=== PATIENT | female | born 1985 | race Caucasian/White ===

== ENCOUNTER 2016-06-28 04:09 | Emergency (ER) | payer OTHER ==
[2016-06-28 06:57] VITALS: BP 137/98
== END 2016-06-28 06:57 | disposition home or self-care (01) ==
LOC: ED 04:09
DX: O20.0 Threatened abortion (principal); O99.511 Diseases of the respiratory system complicating pregnancy, first trimester; J06.9 Acute upper respiratory infection, unspecified; Z3A.01 Less than 8 weeks gestation of pregnancy

== ENCOUNTER → 2016-08-25 | Outpatient (CLI) | payer OTHER ==
[2016-08-25 16:34] LABS: AST/SGOT 25 U/L (15-37)
[2016-08-25 16:44] LABS: BASOPHIL % 0 % (0-2); PLATELET COUNT 183 x10^3mcL (130-400); RED CELL DISTRIBUTION WIDTH 14.6 % (11.5-14.5)
== END | disposition home or self-care (01) ==
LOC: LB 15:06
DX: Z34.90 Encounter for supervision of normal pregnancy, unspecified, unspecified trimester (principal)

== ENCOUNTER → 2016-11-11 | Outpatient (CLI) | payer OTHER ==
[2016-11-11 09:13] LABS: PLATELET COUNT 204 x10^3mcL (130-400)
[2016-11-11 09:14] LABS: BASOPHIL % 0 % (0-2); RED CELL DISTRIBUTION WIDTH 15.4 % (11.5-14.5)
[2016-11-12 08:15] LABS: RAPID PLASMA REAGIN Non Reactive (Non Reactive)
== END | disposition home or self-care (01) ==
LOC: LB 08:34
DX: Z00.00 Encounter for general adult medical examination without abnormal findings (principal)

== ENCOUNTER → 2016-12-15 | Outpatient (CLI) | payer OTHER ==
[2016-12-15 16:39] LABS: BASOPHIL % 0.2 % (0-2); PLATELET COUNT 206 x10^3mcL (130-400)
[2016-12-15 16:46] LABS: ALKALINE PHOSPHATASE 152 U/L (46-116); ALT/SGPT 22 U/L (14-59); AST/SGOT 25 U/L (15-37); BILIRUBIN TOTAL 0.3 mg/dL (0.20-1.00); CALCIUM 9.3 mg/dL (8.5-10.1); CARBON DIOXIDE 24.4 mmol/L (21-32); CHLORIDE SERUM 104 mmol/L (98-107); CREATININE SERUM 0.5 mg/dL (0.6-1.0); GFR1 > 60 mL/min; GLUCOSE SERUM 68 mg/dL (74-106); POTASSIUM SERUM 4.1 mmol/L (3.5-5.1); SODIUM SERUM 137 mmol/L (136-145); TOTAL PROTEIN, SERUM 6.4 g/dL (6.4-8.2); URIC ACID 5.2 mg/dL (2.6-6.0)
[2016-12-15 16:48] LABS: ALBUMIN 2.5 g/dL (3.4-5.0)
[2016-12-15 17:01] LABS: RED CELL DISTRIBUTION WIDTH 15.2 % (11.5-14.5)
== END | disposition home or self-care (01) ==
LOC: LB 16:06
DX: O13.3 Gestational [pregnancy-induced] hypertension without significant proteinuria, third trimester (principal)

== ENCOUNTER → 2017-06-14 | Outpatient (CLI) | payer OTHER ==
[2017-06-14 11:32] LABS: BASOPHIL % 0.4 % (0-2); PLATELET COUNT 249 x10^3mcL (130-400); RED CELL DISTRIBUTION WIDTH 13.8 % (11.5-14.5)
[2017-06-14 12:05] LABS: ALBUMIN 3.4 g/dL (3.4-5.0); ALKALINE PHOSPHATASE 146 U/L (46-116); ALT/SGPT 18 U/L (14-59); AST/SGOT 17 U/L (15-37); BILIRUBIN TOTAL 0.3 mg/dL (0.20-1.00); CALCIUM 9.3 mg/dL (8.5-10.1); CARBON DIOXIDE 29.2 mmol/L (21-32); CHLORIDE SERUM 104 mmol/L (98-107); CHOLESTEROL 143 mg/dL (<200); CHOLESTEROL/HDL RATIO 2.9; CREATININE SERUM 0.8 mg/dL (0.6-1.0); GFR1 > 60 mL/min; GLUCOSE SERUM 84 mg/dL (74-106); HDL CHOLESTEROL 49 mg/dL (40-60); POTASSIUM SERUM 4.1 mmol/L (3.5-5.1); SODIUM SERUM 139 mmol/L (136-145); TOTAL PROTEIN, SERUM 7.2 g/dL (6.4-8.2); TRIGLYCERIDES 164 mg/dL (<150)
== END | disposition home or self-care (01) ==
LOC: LB 10:31
DX: Z01.419 Encounter for gynecological examination (general) (routine) without abnormal findings (principal)

== ENCOUNTER → 2017-07-01 | Outpatient (CLI) | payer OTHER | END | disposition home or self-care (01) | LOC: US 16:30 | PROC: BW4GZZZ Ultrasonography of Pelvic Region (ICD-10-PCS; principal; 2017-07-01) | DX: R10.2 Pelvic and perineal pain (principal) ==

== ENCOUNTER 2018-06-27 23:31 | Emergency (ER) | payer OTHER ==
[~2018-06-27] VITALS: Ht 165.1 cm; Wt 119.7 kg
[2018-06-27 23:36] VITALS: Ht 165.1 cm; Wt 119.7 kg
[2018-06-28 00:56] LABS: BASOPHIL % 0.3 % (0-2); PLATELET COUNT 208 x10^3mcL (130-400); RED CELL DISTRIBUTION WIDTH 13.1 % (11.5-14.5)
[2018-06-28 01:05] LABS: CALCIUM 8.7 mg/dL (8.5-10.1); CARBON DIOXIDE 20.9 mmol/L (21-32); CHLORIDE SERUM 103 mmol/L (98-107); CREATININE SERUM 0.9 mg/dL (0.6-1.0); GFR1 > 60 mL/min; GLUCOSE SERUM 149 mg/dL (74-106); POTASSIUM SERUM 3.3 mmol/L (3.5-5.1); SODIUM SERUM 136 mmol/L (136-145)
[2018-06-28 01:17] LABS: ALKALINE PHOSPHATASE 119 U/L (46-116); ALT/SGPT 27 U/L (14-59); AMYLASE 40 U/L (25-115); AST/SGOT 24 U/L (15-37); BILIRUBIN TOTAL 0.45 mg/dL (0.20-1.00); HDL CHOLESTEROL 38 mg/dL (40-60); LIPASE 188 IU/L (73-393); MAGNESIUM 1.6 mg/dL (1.8-2.4); T4(THYROXINE) 10.9 ug/dL (4.7-13.3); TOTAL PROTEIN, SERUM 6.7 g/dL (6.4-8.2)
[2018-06-28 01:18] LABS: CHOLESTEROL 112 mg/dL (<200)
[2018-06-28 01:43] LABS: microscopic required? NO
[2018-06-28 02:11] LABS: UA SPECIFIC GRAVITY <=1.005 (1.005-1.035); urine erythrocyte NEGATIVE (NEGATIVE)
[2018-06-28 02:27] LABS: AMPHETAMINE QUAL UR NONE DETECTED (See below)
[2018-06-28 03:43] VITALS: BP 130/79
== END 2018-06-28 03:43 | disposition home or self-care (01) ==
LOC: ED 23:31
PROVIDERS: Emergency Medicine
DX: J18.9 Pneumonia, unspecified organism (principal); R09.1 Pleurisy; R07.89 Other chest pain; E66.01 Morbid (severe) obesity due to excess calories; Z68.41 Body mass index [BMI] 40.0-44.9, adult; Z98.890 Other specified postprocedural states
CPT/HCPCS: 85378; 87804; J0696; J1885; J7030; Q9967

== ENCOUNTER 2018-09-01 19:40 | Emergency (ER) | payer OTHER ==
[~2018-09-01] VITALS: Ht 165.1 cm; Wt 117.9 kg
[2018-09-01 19:42] VITALS: BP 137/86; Ht 165.1 cm; Wt 117.9 kg
== END 2018-09-01 20:01 | disposition home or self-care (01) ==
LOC: ED 19:40
DX: J03.90 Acute tonsillitis, unspecified (principal)
CPT/HCPCS: J0696; J7512

== ENCOUNTER 2018-10-18 00:44 | Inpatient (IN) | payer OTHER ==
[~2018-10-18] VITALS: Ht 165.1 cm; Wt 117.9 kg
[2018-10-18 00:51] VITALS: Ht 165.1 cm; Wt 117.9 kg
--- NOTE | 2018-10-18 01:00 | NUR ---
PT AMBULATED TO HALLWAY CHAIR 4
--- NOTE | 2018-10-18 01:03 | NUR ---
PT TO H6.
--- NOTE | 2018-10-18 01:07 | NUR ---
PT TO ED FOR EVAL OF COUGHING AND WHEEZING. 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 PT AWAKE AND ALERT. BREATHING EVEN UNLABORED. NO DISTRESS.
--- NOTE | 2018-10-18 03:10 | NUR ---
PT IN POSITION OF COMFORT. RESP E/U. UPON AUSCULTATION ALINA LUNG SOUNDS ARE CLEAR. PT STS SHE IS FEELING BETTER. VSS. NO DSITRESS NOTED. PT OFFERED WATER. WILL CONTINUE TO MONITOR.
[2018-10-18 05:01] VITALS: BP 132/63
--- NOTE | 2018-10-18 06:52 | NUR ---
LAB AT BEDSIDE. PT IN POSITION OF COMFORT. VSS. NO DISTRESS NOTED. PT HAS SOME WHEEZING UPON EXPIRATION. DR. CLARKE MADE AWARE. WILL CONTINUE TO MONITOR.
[2018-10-18 07:00] LABS: PLATELET COUNT 231 x10^3mcL (130-400); RED CELL DISTRIBUTION WIDTH 12.8 % (11.5-14.5)
[2018-10-18 07:16] LABS: MAGNESIUM 2.4 mg/dL (1.8-2.4); PHOSPHOROUS 1.6 mg/dL (2.5-4.9)
--- NOTE | 2018-10-18 08:00 | NUR ---
RECIEVED PT FROM ER. A/O X4 NO C/O PAIN, DISTRESS, OR SOB AT THIS TIME. IV ON LEFT HAND RUNNING NS AT 100ML/HR, INTACT AND PATENT WITH NO REDNESS OR INFLAMMATION.TELE MONITOR#12 CONNECTED TO PT.SAFETY PRECAUTIONS IN PLACE, CALL LIGHT WITHIN REACH, WILL MONITOR.
--- NOTE | 2018-10-18 08:00 | NUR ---
REPORT GIVEN TO HOSSEIN TORRES , UPDATED ON PT'S TACHYCARDIA AND COMPLETE VITAL SIGNS. PT STABLE FOR TARNSFER. DENIES ANY CP OR SOB. PT ATE BREAKFAST. IV FLUIDS INFUSING AT 100CC/HR ORDERED.
[2018-10-18 08:25] LABS: BAND NEUTROPHIL 0 % (0-10); BASOPHIL 0 % (0-2); SEGMENTED NEUTROPHILS 99 % (37-75)
[2018-10-18 08:26] LABS: PLATELET MORPHOLOGY PLATELETS INCREASED
[2018-10-18 08:27] LABS: rbc morphology (normal/abnorm) ABNORMAL (NORMAL)
[2018-10-18 09:43] VITALS: BP 119/44
--- NOTE | 2018-10-18 10:08 | NUR ---
DR MILLER AND TEAM AT BEDSIDE ASSESSING PT AND DISCUSSING POC. NO NEW ORDERS AT THIS TIME. DR SNIDER AWARE OF PATIENTS TACHYCARDIA. WILL MONITOR.
--- NOTE | 2018-10-18 12:00 | NUR ---
PT RESTING IN BED WITH NO C/O PAIN, DISTRESS, OR SOB. TOLERATING ALL CARES WELL, WILL CONTINUE TO MONITOR.
[2018-10-18 12:52] VITALS: BP 130/83
--- NOTE | 2018-10-18 14:25 | NUR ---
PT STABLE AT THIS TIME. NO C/O SOB OR PAIN. PT WAS UP WALKING AND TOLERATED WELL. SAFETY PRECAUTIONS IN PLACE, CALL LIGHT WITHIN REACH, WILL MONITOR.
--- NOTE | 2018-10-18 15:05 | NUR ---
PT JUST NOW REPORTS CP /PRESSURE OF 5/10, SHE STATES THAT IT STARTED A FEW MINUTES AFTER HER 1400 SODE OF SOLU-MEDROL. PT STATES THAT SHE HAS HAD THE SOLU-MEDROL BEFORE WITH NO ADVERSE REACTIONS. HR CURRENTLY FLUCTUATING FROM 120-130'S. PAGED DR SHAHID REGARDING CHANGES IN PT CONDITION. DR SHAHID CALLED BACK AND SAID SHE WOULD "GO SPEAK WITH PT". WILL CONTINUE TO MONITOR.
--- NOTE | 2018-10-18 15:12 | NUR ---
DR SHAHID CURRENTLY AT BEDSIDE WITH PT DISCUSSING CURRENT SYMPTOMS AND POC. WILL F/U WITH DR SHAHID.
--- NOTE | 2018-10-18 15:20 | NUR ---
SPOKE WITH DR SHAHID, ORDERS FOR ECHO AND EKG WILL BE PUT IN BY HER. WILL CONTINUE MONITORING PT.
--- NOTE | 2018-10-18 15:55 | NUR ---
NOTIFIED PT OF NEW ORDERS FOR NITRO PRN FOR CP OR PRESSURE, SHE DENIES ANY MORE CP OR PRESSURE AT THIS TIME. SHE STATES THAT THE PRESSURE IS INTERMITTENT UPON REPOSITIONING AND HAS SUBSIDED AT THIS TIME. PT REFUSES ANY NITRO AT THIS TIME. EXPLAINED TO PT THAT SHE SHOULD CALL ME IF THE PAIN OR PRESSURE RETURNS. SAFETY PRECAUTIONS IN PLACE, CALL LIGHT WITHIN REACH, FATHER AT BEDSIDE. WILL CONTINUE TO MONITOR.
[2018-10-18 17:46] VITALS: BP 119/70
--- NOTE | 2018-10-18 18:03 | NUR ---
PT STABLE AND REPORTS NO CP OR PRESSURE. NO SOB NOTED. ALL CARES TOLERATED WELL. PT A/O X4, NO HADLEY OR DIZZINESS. TELE MONITOR #12 CONNECTED TO PT. IV INTACT AND PATENT TO RIGHT HAND WITH NO REDNESS OR INFLAMMATION NOTED. NS RUNNING AT 100ML/HR. SAFETY PRECAUTIONS IN PLACE, CALL LIGHT WITHIN REACH, WILL ENDORSE CARE TO NIGHT NURSE.
--- NOTE | 2018-10-18 19:50 | NUR ---
RECEIVED REPORT FROM DAY SHIFT RN. PT SITTING ON THE CHAIR. NO SOB ON ROOM AIR. NO C/O PAIN. NO DISTRESS NOTED. IV TO RIGHT HAND, NS INFUSING. SAFETY MEASURES IN PLACE. CALL LIGHT WITHIN REACH.
[2018-10-18 21:19] VITALS: BP 117/66
[2018-10-19 05:51] VITALS: BP 101/47
[2018-10-19 06:09] LABS: CALCIUM 9.3 mg/dL (8.5-10.1); CARBON DIOXIDE 21.4 mmol/L (21-32); CHLORIDE SERUM 110 mmol/L (98-107); CREATININE SERUM 0.8 mg/dL (0.6-1.0); GFR1 > 60 mL/min; GLUCOSE SERUM 121 mg/dL (74-106); POTASSIUM SERUM 4.2 mmol/L (3.5-5.1); SODIUM SERUM 144 mmol/L (136-145)
[2018-10-19 06:32] LABS: PLATELET COUNT 252 x10^3mcL (130-400); RED CELL DISTRIBUTION WIDTH 13.2 % (11.5-14.5)
--- NOTE | 2018-10-19 07:00 | NUR ---
PT SLEPT AT LONG INTERVALS DURING SHIFT. NO SOB ON ROOM AIR. NO C/O PAIN. NO DISTRESS NOTED. SAFETY MEASURES MAINTAINED. ALL NEEDS ATTENDED TO. WILL ENDORSE CONTINUITY OF CARE TO ONCOMING RN.
--- NOTE | 2018-10-19 08:00 | NUR ---
ALERT AND ORIENTED. BREATHING FREELY ON RA. SAYS SHE FEELS FINE. NO MORE RESP DISTRESS. INDEPENDENT W ADL'S. DENIES PAIN. NS INFUSING 100 CC HOUR. ZITHROMAX IV ABX. RT PROTOCOL. VSS. TELE # 12 NSR. CALL LIGHT WITHIN REACH.
[2018-10-19 08:14] LABS: BAND NEUTROPHIL 0 % (0-10); BASOPHIL 0 % (0-2); MONOCYTE 1 % (0-7); SEGMENTED NEUTROPHILS 94 % (37-75)
[2018-10-19 08:16] LABS: PLATELET MORPHOLOGY PLATELETS DECREASED
[2018-10-19 08:33] VITALS: BP 126/88
[2018-10-19 12:39] VITALS: BP 102/42
[2018-10-19 15:04] LABS: rbc morphology (normal/abnorm) NORMAL (NORMAL)
[2018-10-19] MEDS ORDERED: MUCINEX600 MG PO (15:37)
[2018-10-19] MEDS ORDERED: ZITHROMAX250 MG PO (15:37)
[2018-10-19] MEDS ORDERED: ATROVENT H0.017 MG/1 INH (15:37)
[2018-10-19 15:39] VITALS: BP 102/42
--- NOTE | 2018-10-19 16:35 | NUR ---
DC'D TO HOME. F/U LIANA GIVEN. IV DC'D. PRESCRIPTIONS GIVEN. ALL DC INSTRUCTIONS REVIEWED AITH AND SIGNED BY PT.
== END 2018-10-19 16:15 | disposition home or self-care (01) | DRG 202 ==
LOC: ED 00:44 → DU 04:05 → MU 04:05 → DU 08:27
PROVIDERS: Internal Medicine; ADMIT Internal Medicine
DX: J45.901 Unspecified asthma with (acute) exacerbation (principal); Z68.41 Body mass index [BMI] 40.0-44.9, adult; J20.9 Acute bronchitis, unspecified; E66.01 Morbid (severe) obesity due to excess calories; Z71.3 Dietary counseling and surveillance
CPT/HCPCS: 94150; G0378; J0456; J1644; J2920; J2930; J3475; J7030; J7620; J7626; Q0092

== ENCOUNTER 2019-08-15 06:40 | Emergency (ER) | payer OTHER ==
[~2019-08-15] VITALS: Ht 165.1 cm; Wt 92.1 kg
[~2019-08-15 06:40] MED LIST: ATROVENT H0.017 MG/1 INH; MUCINEX600 MG PO; ZITHROMAX250 MG PO
[2019-08-15 06:45] VITALS: Ht 165.1 cm; Wt 92.1 kg
[2019-08-15 07:22] LABS: BASOPHIL % 0.6 % (0-2); PLATELET COUNT 219 x10^3mcL (130-400); RED CELL DISTRIBUTION WIDTH 13.6 % (11.5-14.5)
[2019-08-15 07:32] LABS: CALCIUM 9.3 mg/dL (8.5-10.1); CARBON DIOXIDE 24.7 mmol/L (21-32); CHLORIDE SERUM 104 mmol/L (98-107); CREATININE SERUM 0.8 mg/dL (0.6-1.0); GFR1 > 60 mL/min; GLUCOSE SERUM 104 mg/dL (74-106); SODIUM SERUM 138 mmol/L (136-145)
[2019-08-15 07:36] LABS: ALBUMIN 3.4 g/dL (3.4-5.0); ALKALINE PHOSPHATASE 142 U/L (46-116); ALT/SGPT 23 U/L (14-59); AMYLASE 46 U/L (25-115); AST/SGOT 16 U/L (15-37); BILIRUBIN TOTAL 0.3 mg/dL (0.20-1.00); LIPASE 224 IU/L (73-393); TOTAL PROTEIN, SERUM 6.9 g/dL (6.4-8.2)
[2019-08-15 08:34] VITALS: BP 135/70
== END 2019-08-15 08:34 | disposition home or self-care (01) ==
LOC: ED 06:40
PROVIDERS: Specialist
DX: K80.50 Calculus of bile duct without cholangitis or cholecystitis without obstruction (principal)
CPT/HCPCS: 36415; Q0092